=== PATIENT | female | born 1970 | race Caucasian/White ===

== ENCOUNTER → 2017-07-14 | Day surgery (SDC) | payer OTHER ==
[2017-07-13 15:24] LABS: BASOPHILS # (AUTO) 0.1 (0.0-0.1); BASOPHILS % 0.6 % (0.0-1.0); EOSINOPHILS # (AUTO) 0.2 (0.0-0.4); EOSINOPHILS % 2.6 % (0.0-6.0); HEMATOCRIT 39.1 % (34.2-44.1); HEMOGLOBIN 12.6 g/dL (12.0-16.0); LYMPHOCYTES # (AUTO) 2.5 (1.0-3.2); LYMPHOCYTES % 27.3 % (18.0-39.1); MEAN CORPUSCULAR HGB CONC 32.2 g/dL (31-35); MEAN CORPUSCULAR VOLUME 83.7 fL (81-99); MONOCYTES # (AUTO) 0.7 (0.2-0.8); NEUTROPHILS # (AUTO) 5.7 (2.1-6.9); NEUTROPHILS % 61.2 % (38.7-80.0); PLATELET COUNT 348 x10e3/uL (140-360); RED BLOOD COUNT 4.67 x10e6/uL (3.6-5.1); RED CELL DISTRIBUTION WIDTH 14.8 % (11.7-14.4)
[2017-07-13 15:43] LABS: ANION GAP 11.4 mmol/L (8-16); BLOOD UREA NITROGEN 7 mg/dL (7-26); BUN/CREATININE RATIO 11 (6-25); CALCIUM 8.5 mg/dL (8.4-10.2); CARBON DIOXIDE 26 mmol/L (22-29); CHLORIDE 109 mmol/L (98-107); CREATININE, SERUM 0.64 mg/dL (0.57-1.11); EST GLOMERULAR FILTRATION RATE > 60 ML/MIN (60-); GLUCOSE 86 mg/dL (74-118); POTASSIUM 4.4 mmol/L (3.5-5.1); SODIUM 142 mmol/L (136-145)
[~2017-07-14] MED LIST: CEFTRIAXONE SOD 1 GM VIAL ONE; CRESTOR10 MG PO; CYTOMEL5 MCG PO; DEXAMETHASONE SOD PHOS INJ 4 MG/ML VIAL ONE; FENTANYL CITRATE/PF 100MCG/2 ML INJ ONE; IOPAMIDOL 610MG/1ML 300 MG/ML VIAL IV ONE; KETOROLAC TROMETHAMINE 30 MG/ML VIAL ONE; LIDOCAINE HCL 2% LOCAL INJ 5 ML SDV VIAL INJ ONE; METOPROLOL TART25 MG PO; MIDAZOLAM HCL 2 MG/2 ML VIAL ONE; ONDANSETRON HCL INJ 2 MG/ML VIAL ONE; PROPOFOL IV EMULSION 10 MG/ML 20 ML VIAL ONE; ROCURONIUM BROMIDE 10 MG/ML 5ML VIAL ONE; SEVOFLURANE INHAL SOLN 250 ML PEN BTL ONE; SYNTHROID100 MCG PO
--- NOTE | 2017-07-21 09:41 | Operative Report ---
DATE OF PROCEDURE: July 14, 2017 PREOPERATIVE DIAGNOSIS: Left proximal ureteral stone. POSTOPERATIVE DIAGNOSIS: Left proximal ureteral stone. OPERATIVE PROCEDURES PERFORMED 1. Cystoscopy. 2. Left retrograde pyelogram. 3. Left ureteroscopy with laser lithotripsy. 4. Placement of left ureteral stent. ANESTHESIA: General anesthesia. ESTIMATED BLOOD LOSS: Minimal. INDICATIONS: Ms. Michael Frazier is a 46-year-old woman with a history of left flank pain and found to have a left proximal ureteral stone. She now presents for definitive surgical management of this problem. PROCEDURE IN DETAIL: The patient was brought in the operating room and placed in the supine position. After the administration of general anesthesia, was placed in the dorsal lithotomy position, and prepped and draped in the usual sterile fashion. Cystourethroscopy was performed using a 21-[place]oz[place] cystoscope. The anterior and posterior urethra were noted to be normal. The bladder was entered without difficulty. Upon entrance into the bladder, the ureteral orifices were in their normal anatomical position and produced clear efflux. There were no mucosal lesions identified. Using a 5-[place] open coned catheter, left retrograde pyelogram was performed. This revealed a stone approximately 8-9 mm in diameter in the proximal left ureter with mild hydronephrosis noted behind this. There were no other calculi visualized on the retrograde. A 0.038 wire was placed up into the left renal pelvis, and a 12 x 14 x 36 cm ureteral access sheath was placed. Flexible ureteroscopy was then performed. The previously described stone was seen in the proximal ureter just past the ureteropelvic junction. It was pushed up into the middle pelvis, and the Holmium laser was used to break it up into smaller fragments. The larger of these fragments were removed. The smaller fragments were left in situ, and were presumed to pass with stent placement. There are several other small stones seen, and these are irrigated free of the pelvis. There were some Raudel's plaques noted, one of which was removed with the basket. When there were no other large stones visualized, the ureteroscope was removed without difficulty as was the ureteral access sheath. A double pigtail stent for her height was then placed. One coil was in the renal pelvis and the subsequent coil was in the bladder. The string was allowed to exit the urethral meatus. The bladder was then drained in its entirety. The patient was returned to the supine position. Anesthesia was reversed. She was transferred to her bed and taken the postanesthesia care unit in good condition. Of note, the needle and instrument count were correct at the conclusion of the case. Job#: [id number] [email or web address]
== END | disposition home or self-care (01) ==
LOC: OR 08:22
PROVIDERS: ATTEND Urology
DX: N20.1 Calculus of ureter (principal); N13.30 Unspecified hydronephrosis; N28.89 Other specified disorders of kidney and ureter; I10 Essential (primary) hypertension; Z01.810 Encounter for preprocedural cardiovascular examination; Z01.812 Encounter for preprocedural laboratory examination
CPT/HCPCS: 36415; 52356; 74420; 80048; 81025; 85025; 88300; 93005; C1766; C1874; J0696; J1100; J1885; J2001; J2250; J2405; Q9967